=== PATIENT | female | born 1960 | race Caucasian/White ===

== ENCOUNTER → 2019-01-22 | Outpatient (CLI) | payer BC ==
--- NOTE | 2019-01-22 11:23 | XR ---
EXAMINATION TYPE: XR Hip Complete LT DATE OF EXAM: 01/22/2019 CLINICAL HISTORY: Intermittent but increasing chronic left hip pain TECHNIQUE: AP and frogleg views of the left hip are obtained. COMPARISON: None. FINDINGS: There is no acute fracture/dislocation evident in the left hip. There is mild acetabular sclerosis. The joint space in the left hip appears aligned with a very small subchondral cyst of the lateral acetabular roof. Extensive vascular atherosclerosis. Calcified structures in the pelvis likel y represent degenerative calcified uterine leiomyomas. The overlying soft tissue appears unremarkable . IMPRESSION: 1. No acute fracture or dislocation in the left hip. 2. Mild left femoral acetabular arthropathy and extensive atherosclerosis of the femoral artery and i ts visualized portion.
== END ==
LOC: RADXRYALE 10:59
PROVIDERS: ATTEND Family Medicine
DX: M16.12 Unilateral primary osteoarthritis, left hip (principal); I70.202 Unspecified atherosclerosis of native arteries of extremities, left leg
CPT/HCPCS: 73502

== ENCOUNTER → 2019-04-27 | Outpatient (CLI) | payer BC ==
[2019-04-27 08:07] VITALS: BP 141/84; PULSE 69; RESP 18; TEMP 98.6
--- NOTE | 2019-04-27 08:37 | P.HPOB ---
History of Present Illness H&P Date: 04/27/19 Chief Complaint: The patient is here for her routine gynecologic exam and ma mmogram. This is a 59-year-old with an LMP of 2017. The patient is without gynecologic complaints and denies any postmenopausal bleeding. She denies any significant hot flashes. Review of Systems Patient has gained about 16 pounds over the past 3 years. She denies respiratory, cardiac, or GI problems. Past Medical History Past Medical History: Diabetes Mellitus, Hyperlipidemia Additional Past Medical History / Comment(s): Type 2 diabetes requiring insulin. 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 She has known uterine fibroids by 2016 ultrasound, largest 3.7cm. History of Any Multi-Drug Resistant Organisms: None Reported Past Surgical History: No Surgical Hx Reported Additional Past Surgical History / Comment(s): Colonoscopy 2015(next after 10yr) Past Psychological History: No Psychological Hx Reported Smoking Status: Former smoker Past Alcohol Use History: Occasional (3 per week) Additional Past Alcohol Use History / Comment(s): Quit smoking in 2014. Past Drug Use History: None Reported Additional History: She has been since 1989 and is infrequently sexually active. 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 - Past Family History Father Family Medical History: Diabetes Mellitus Additional Family Medical History / Comment(s): Grandmother also had diabetes. Medications and Allergies Home Medications Medication Instructions Recorded Confirmed Type Atorvastatin [Lipitor] 20 mg PO DAILY 04/27/19 04/27/19 History Cholecalciferol (Vitamin D3) 2,000 unit PO DAILY 04/27/19 04/27/19 History [Vitamin D3] Insulin Glargine [Lantus] 30 unit SQ HS 04/27/19 04/27/19 History Vitamin B Complex 1 each PO DAILY 04/27/19 04/27/19 History metFORMIN HCL 1,000 mg PO BID 04/27/19 04/27/19 History Allergies Allergy/AdvReac Type Severity Reaction Status Date / Time No Known Allergies Allergy Unverified 04/27/19 08:01 Exam Vital Signs Temp Pulse Resp BP Pulse Ox 04/27/19 08:04 98.6 F 69 18 141/84 98 Intake and Output 04/26/19 04/27/19 04/27/19 22:59 06:59 14:59 Other: Weight 90.718 kg Height 5 feet 4 inches, weight 200 pounds, BMI 34.3. This is a well-developed well-nourished white female who is alert and oriented times 3 in no acute distress. HEENT: Within normal limits. NECK: Supple without mass or thyromegaly. CHEST AND LUNGS: Clear to auscultation. HEART: Regular rate and rhythm. BREASTS: Are without mass or discharge. AXILLARY EXAM: Negative for adenopathy. BACK: Negative for CVA tenderness. ABDOMEN: Soft, nontender, without palpable masses. PELVIC EXAM: Normal external genitalia with mild atrophy. Cervix and vagina appear normal with mild atrophy. There is no unusual discharge. There is no evidence of prolapse. The uterus is midposition, multiparous-nongravid size and nontender. There are no palpable adnexal masses or tenderness. RECTAL EXAM: Rectovaginal exam is negative for mass or tenderness and is negative for occult blood. EXTREMITIES: Nontender. IMPRESSION: 1. 59-year-old menopausal female with normal gynecologic exam. 2. History of uterine fibroids by ultrasound in 2016 with the largest measuring 3.7 cm at that time. 3. Mildly increased blood pressure. PLAN: 1. Pap smear was performed. 2. Self breast awareness was discussed with the patient. 3. Screening mammogram will be done today. 4. I have recommended that she check her own blood pressures at home on a regular basis and she states her has a blood pressure cuff so she can do this. She was instructed to follow-up with Dr. Altamirano for blood pressure elevations. 5. Osteoporosis prevention was discussed. I have stressed the importance of adequate calcium, vitamin D and regular exercise. Recommended amounts of calcium and vitamin D were also discussed. 6. She was advised to return in one year for her annual well woman exam.
--- NOTE | 2019-04-27 13:31 | MM ---
Reason for exam: screening (asymptomatic). Last mammogram was performed 3 years and 4 months ago. History: Patient is postmenopausal. Took hormonal contraceptives for 6 years beginning at age 22. Physical Findings: A clinical breast exam by your physician is recommended on an annual basis and results should be correlated with mammographic findings. MG Screening Mammo w CAD Bilateral CC and MLO view(s) were taken. Prior study comparison: December 15, 2015, bilateral MG work up mamm w CAD BILAT. December 06, 2015, bilateral MG screening mammo w CAD. The breast tissue is heterogeneously dense. This may lower the sensitivity of mammography. Finding #1: There is a 5 mm circumscribed oval mass in the lower quadrant, posterior position of the left breast. Finding #2: There are typically benign round calcifications in both breasts. New finding since December 15, 2015 and December 06, 2015. ASSESSMENT: Incomplete: need additional imaging evaluation, BI-RAD 0 RECOMMENDATION: Ultrasound of the left breast. [facility] will attempt to contact patient to return for ultrasound.
--- NOTE | 2019-05-04 17:26 | P.PN ---
Progress Note - Text Progress Note Date: 05/04/19 OUTPATIENT FOLLOW-UP NOTE TEST(S)/RESULTS: Test results from 04/27/2019 include negative Pap smear and screening mammogram which is incomplete. The left breast ultrasound workup was recommended. METHOD OF NOTIFICATION: A message with these results was left on the patient's voicemail. PATIENT COMMENTS: DIAGNOSIS: Negative Pap smear and screening mammogram requiring left breast ultrasound workup. DISCUSSION: The patient is scheduled for a left breast ultrasound on 05/05/2019. PLAN: The patient was advised to return in one year for her well woman exam.
== END | disposition home or self-care (01) ==
LOC: WWCWWP 07:40
PROVIDERS: ATTEND Obstetrics & Gynecology
DX: Z12.31 Encounter for screening mammogram for malignant neoplasm of breast (principal)
CPT/HCPCS: 77067

== ENCOUNTER → 2019-05-05 | Outpatient (CLI) | payer BC ==
--- NOTE | 2019-05-05 10:51 | USB ---
Reason for exam: additional evaluation requested from abnormal screening. History: Patient is postmenopausal. Took hormonal contraceptives for 6 years beginning at age 22. Physical Findings: Nurse did not find any significant physical abnormalities on exam. US Breast Workup Limited LT Left limited breast ultrasound including focal area of concern, retroareolar and axilla demonstrates a 0.3 x 0.3 x 0.3cm cystic, benign lesion at 5 o'clock and a 0.5 x 0.2 x 0.6cm cystic, benign lesion at 7 o'clock. These results were verbally communicated with the patient and result sheet given to the patient on 05/05/19. ASSESSMENT: Incomplete: need additional imaging evaluation, BI-RAD 0 RECOMMENDATION: Follow-up diagnostic mammogram. (right breast)
--- NOTE | 2019-05-05 10:52 | MM ---
Reason for exam: additional evaluation requested from abnormal screening. Last mammogram was performed less than 1 month ago. History: Patient is postmenopausal. Took hormonal contraceptives for 6 years beginning at age 22. MG Work Up Mamm w CAD RT Spot compression CC, spot compression MLO, and LM view(s) were taken of the right breast. Prior study comparison: April 27, 2019, bilateral MG screening mammo w CAD. December 15, 2015, bilateral MG work up mamm w CAD BILAT. The breast tissue is heterogeneously dense. This may lower the sensitivity of mammography. The previously seen abnormality resolves on additional views and appears as fibroglandular tissue compatible with summation particularly on the lateral view. These results were verbally communicated with the patient and result sheet given to the patient on 05/05/19. ASSESSMENT: Negative, BI-RAD 1 RECOMMENDATION: Return to routine screening mammogram schedule for both breasts.
== END | disposition home or self-care (01) ==
LOC: RADUSWWP 09:32
PROVIDERS: ATTEND Obstetrics & Gynecology
DX: R92.8 Other abnormal and inconclusive findings on diagnostic imaging of breast (principal)
CPT/HCPCS: 77065

== ENCOUNTER → 2022-12-17 | Outpatient (CLI) | payer BC ==
--- NOTE | 2022-12-17 18:43 | BD ---
EXAMINATION TYPE: Axial Bone Density DATE OF EXAM: 12/17/2022 CLINICAL HISTORY: 62 years old Female. ICD-10 CODE: ,M81.0 Height: 65 Weight: 209.7 FRAX RISK QUESTIONS: Alcohol (3 or more units per day): no Family History (Parent hip fracture): no Glucocorticoids (More than 3mos): no (Ex: prednisone, prednisolone, methylprednisolone, dexamethasone, and hydrocortisone). History of Fracture in Adulthood: no Secondary Osteoporosis: 1. Type 1 Diabetes: no 2. Hyperthyroidism: no 3. Menopause before 45: no 4. Malnutrition: no 5. Chronic liver disease: no Rheumatoid Arthritis: no Current Tobacco Use: no RISK FACTORS HISTORY OF: History of Wrist Fracture: left wrist/as a child Surgery to Spine/Hip(right/left)/Wrist (right/left): no Family History of Osteoporosis: no Active: no Diet low in dairy products/other sources of calcium: no Postmenopausal woman: yes Lost more than 2 inches in height since high school: no MEDICATIONS: Additional History: EXAM MEASUREMENTS: Bone mineral densitometry was performed using the [employer] System. Bone mineral density as measured about the Lumbar spine is: ----- L1-L4(G/cm2): 1.292 T Score Values are as follows: ----- L1: 0.7 ----- L2: 1.1 ----- L3: 0.9 ----- L4: 1.0 ----- L1-L4: 0.9 Z Score Values are as follows: ----- L1: 0.9 ----- L2: 1.4 ----- L3: 1.1 ----- L4: 1.2 ----- L1-L4: 1.2 Bone mineral density : baseline Bone mineral density about the R hip (g/cm2): 1.021 Bone mineral density about the L hip (g/cm2): 1.018 T Score values are as follows: -----R Neck: -0.6 -----L Neck: -0.4 -----R Total: 0.1 -----L Total: 0.1 Z Score values are as follows: -----R Neck: 0.0 -----L Neck: 0.2 -----R Total: 0.3 -----L Total: 0.3 Bone mineral density : baseline FRAX%s: The graph provided illustrates a 6.3% chance for a major osteoporotic fx and a 0.2% chance fo r the hips probability for fx in 10 years time. IMPRESSION: Normal (Values between +1 and -1 indicate normal bone mass). Consider repeating this study in 5 year s or sooner if there is some new clinical indication. NOTE: T-SCORE=SD OF THE YOUNG ADULT MEAN.
--- NOTE | 2022-12-19 08:45 | MM ---
Reason for Exam: Screening (asymptomatic). Last mammogram was performed 3 year(s) and 8 month(s) ago. Patient History: Menarche at age 15. First Full-Term at age 28. Postmenopausal. Patient has history of breast feeding. Hormonal Contraceptives for 6 years from age 22 until age 28. Risk Values: Rosie 5 year model risk: 1.6%. NCI Lifetime model risk: 8.1%. Prior Study Comparison: 12/15/2015 Bilateral Diagnostic Mammogram, [facility]. 04/27/2019 Bilateral Screening Mammogram, [facility]. 05/05/2019 Right Diagnostic Mammogram, [facility]. Tissue Density: The breast tissue is heterogeneously dense. This may lower the sensitivity of mammography. Findings: Analyzed By CAD. There is no suspicious group of microcalcifications or new suspicious mass in either breast. Overall Assessment: Benign, BI-RAD 2 Management: Screening Mammogram of both breasts in 1 year. . Patient should continue monthly self-breast exams. A clinical breast exam by your physician is recommended on an annual basis. This exam should not preclude additional follow-up of suspicious palpable abnormalities. Note on Rosie scores and lifetime risk: 1. A Rosie score greater than 3% is considered moderate risk. If this is the case, consider specialist referral to assess eligibility for a risk reducing agent. 2. If overall lifetime risk for the development of breast cancer is 20% or higher, the patient may qualify for future screening with alternating mammogram and breast MRI. Electronically signed and approved by: Derrick Weir DO
== END | disposition home or self-care (01) ==
LOC: RADMAMWWP 07:29
PROVIDERS: ATTEND Family Medicine
DX: Z12.31 Encounter for screening mammogram for malignant neoplasm of breast (principal); M81.0 Age-related osteoporosis without current pathological fracture; Z78.0 Asymptomatic menopausal state
CPT/HCPCS: 77063; 77067; 77080